=== PATIENT | female | born 1980 | race Caucasian/White ===

== ENCOUNTER → 2017-03-25 | Outpatient (CLI) | payer BC ==
[~2017-03-25] VITALS: Ht 165.1 cm; Wt 80.0 kg
[~2017-03-25] MED LIST: PRENATAL TABLE1 EAC3 PO
[2017-03-26 12:59] VITALS: BP 117/72
== END | disposition home or self-care (01) ==
LOC: IVINF 10:44
DX: Z31.82 Encounter for Rh incompatibility status (principal); Z3A.28 28 weeks gestation of pregnancy; Z67.11 Type A blood, Rh negative
CPT/HCPCS: 96372; J2790